=== PATIENT | female | born 1990 | race Caucasian/White ===

== ENCOUNTER 2018-12-18 11:25 | Emergency (ER) | payer BC ==
[~2018-12-18] VITALS: Ht 162.6 cm; Wt 77.1 kg
[~2018-12-18 11:25] MED LIST: HYDROCODONE-AP1 EAC6 PO; IBUPROFEN 800800 M1 PO; OMEPRAZOLE 20 M20 M1 PO; ONDANSETRON HCL4 M2 PO
[2018-12-18] MEDS ORDERED: NEXPLANON68 MG SQ (11:35)
[2018-12-18] MEDS ORDERED: MEDROLDOSEPACK PO (12:27)
[2018-12-18 12:42] VITALS: BP 118/66
== END 2018-12-18 12:43 | disposition home or self-care (01) ==
LOC: M.ERS 11:25
DX: M54.12 Radiculopathy, cervical region (principal)